=== PATIENT | male | born 1935 | race Caucasian/White ===

== ENCOUNTER 2020-03-16 13:29 | Inpatient (IN) | payer OTHER, BC, SELFPAY ==
[~2020-03-16] VITALS: Ht 182.9 cm; Wt 64.0 kg
[2020-03-16 13:31] VITALS: BP_SYST 132
--- NOTE | 2020-03-16 13:36 | NUR ---
Patient to ER bed 6 to gown for evaluation. Side rails up. Report given to YOLIS Hdz.
--- NOTE | 2020-03-16 13:38 | NUR ---
Pt brought by ambulance, A&Ox1, pt presents to ER with generalized weakness, pt has Hx of dementia, skin pink and warm, cap refill<3, VSS, respirations even and unlabored, afebrile, no SOB or cough noted, no diarrhea, covid test collected, will cont to monitor.
--- NOTE | 2020-03-16 13:45 | NUR ---
Dr Damon evaluating patient at bedside
[2020-03-16] MEDS ORDERED: NACL 0.9% 1,000 ML IV ONE (14:15)
[2020-03-16 14:39] LABS: BASOPHILS # (AUTO) 0.1 K/uL (0.0-0.2); BASOPHILS % (AUTO) 0.5 % (0.0-2.0); EOSINOPHILS % (AUTO) 0.1 % (0.0-4.0); HEMATOCRIT 42.9 % (36-54); HEMOGLOBIN 14.4 g/dL (14.0-18.0); LYMPHOCYTES # (AUTO) 0.5 K/uL (1.0-5.5); LYMPHOCYTES % (AUTO) 3.9 % (20.5-51.5); MEAN CORPUSCULAR HEMOGLOBIN 33 pg (27-31); MEAN CORPUSCULAR HGB CONC 34 % (32-36); MEAN CORPUSCULAR VOLUME 97 fL (79.0-98.0); MONOCYTES # (AUTO) 0.9 K/uL (0.0-1.0); MONOCYTES % (AUTO) 7.6 % (1.7-9.3); NEUTROPHILS # (AUTO) 10.4 K/uL (1.8-7.7); NEUTROPHILS % (AUTO) 87.9 % (40.0-70.0); PLATELET COUNT (AUTO) 160 K/uL (130-430); RED BLOOD CELL COUNT(AUTO) 4.41 MIL/uL (4.2-6.2); RED CELL DISTRIBUTION WIDTH 13.9 % (9.0-15.0); WHITE BLOOD COUNT (AUTO) 11.9 K/uL (4.8-10.8)
--- NOTE | 2020-03-16 15:00 | NUR ---
Pt resting in [facility] at this time no distress noted
[2020-03-16 15:09] LABS: ANION GAP 3 (5-15); CALCIUM 8.8 mg/dL (8.4-11.0); CHLORIDE 103 mmol/L (98-107); CREATININE 1.36 mg/dL (0.55-1.30); GLUCOSE 139 mg/dL (70-99); POTASSIUM 4.1 mmol/L (3.5-5.1); SODIUM SERUM 138 mmol/L (136-145); UREA NITROGEN, BLOOD 20 mg/dL (8-21)
[2020-03-16 15:15] LABS: BILIRUBIN,URINE NEGATIVE (NEGATIVE); BLOOD, URINE NEGATIVE (NEGATIVE); CLARITY/URINE CLEAR (CLEAR); COLOR,URINE YELLOW (YELLOW); GLUCOSE,URINE NEGATIVE (NEGATIVE); KETONES,URINE NEGATIVE (NEGATIVE); LEUKOCYTE ESTERASE ,URINE NEGATIVE (NEGATIVE); NITRITE, URINE NEGATIVE (NEGATIVE); PH,URINE 5.5 (5.0-8.0); PROTEIN URINE NEGATIVE (NEGATIVE); UROBILINOGEN,URINE 0.2 (0.2-1.0)
[2020-03-16 15:24] LABS: ALANINE AMINOTRANSFERASE 26 U/L (12-78); ALBUMIN 3.8 g/dL (3.4-4.8); ASPARTATE AMINOTRANSFERASE 22 U/L (10-37); LACTATE DEHYDROGENASE 188 U/L (85-227); TOTAL BILIRUBIN 0.7 mg/dL (0.0-1.0)
[2020-03-16 15:37] LABS: C-REACTIVE PROTEIN QUANT 5.7 mg/dL (0-0.5)
[2020-03-16 15:59] LABS: PROTHROMBIN TIME 9.9 SECS (9.5-12.5)
--- NOTE | 2020-03-16 17:00 | NUR ---
Pt resting in [facility] at this time
[2020-03-16] MEDS ORDERED: IOHEXOL 350 mgI/mL, 150 ML INFUS..BTL IV ONE (17:40)
--- NOTE | 2020-03-16 18:48 | NUR ---
Pt asleep in [facility] no distress noted
--- NOTE | 2020-03-16 19:20 | NUR ---
REPORT RECEIVED FROM YOLIS CELAYA FOR CONTIUING CARE
--- NOTE | 2020-03-16 19:26 | NUR ---
COVID SWAB COLLECTED AND SENT TO LAB
[2020-03-16] MEDS ORDERED: D5/0.45 NS 1,000 ML IV ONE (19:45)
[2020-03-16] MEDS ORDERED: HALOPERIDOL LACTATE 5 MG/ML VIAL IM PRN (20:45)
--- NOTE | 2020-03-16 20:50 | NUR ---
SW ELEN CHOU TO INFORM OF ADMISSION INTO THE HOSPITAL
[2020-03-16] MEDS ORDERED: RISP0.5T5 PO (20:52)
[2020-03-16] MEDS ORDERED: CLOP75TA32 PO (20:52)
[2020-03-16] MEDS ORDERED: SYN50 PO (20:52)
[2020-03-16] MEDS ORDERED: CARB1TAB21 PO (20:52)
[2020-03-16] MEDS ORDERED: LIP20 PO (20:52)
--- NOTE | 2020-03-16 20:52 | NUR ---
Medication reconciliation completed with information provided by ELEN CHOU . Any prior medication reconciliation on file was reviewed and corrected.
--- NOTE | 2020-03-16 21:56 | NUR ---
Patient resting quietly. No acute distress noted. Vital signs within normal range.
--- NOTE | 2020-03-16 22:23 | NUR ---
Patient will be admitted to care of DR. VARMA. Admitted to TELE unit. Will go to room 121C. Belongings list completed. Complete and up to date summary report printed. SBAR report to be given at bedside with opportunity for questions.
[2020-03-16 22:31] VITALS: BP_SYST 135
--- NOTE | 2020-03-16 22:31 | NUR ---
ADMISSION NOTES ADMITTED PATIENT FROM ER FOR SEPSIS. PATIENT RESPOND TO NAME BUT UNABLE TO PROVIDE ANY INFORMATION AT THIS TIME. BREATHING UNLABORED ON ROOM AIR. PATIENT ORIENTED TO ROOM, CALL LIGHT SYSTEM, BED CONTROLS AND TV REMOTE. PATIENT UNABLE TO COMPREHEND/FOLLOW INSTRUCTIONS. BED IN LOWEST LOCKED POSITION WITH ALARM ON.
[2020-03-16] MEDS: cefTRIAXone 1 GM in D5W 50 ML IV SCH (23:06)
--- NOTE | 2020-03-16 23:06 | NUR ---
ATB PATIENT STARTED ON ROCEPHIN ANTIBIOTIC ORDERED. IV LINE INTACT AND PATENT. VITAL SIGNS STABLE.
[2020-03-16] MEDS ORDERED: cefTRIAXone 1 GM VIAL ONE (23:12)
--- NOTE | 2020-03-16 23:29 | NUR ---
Consultation Paged Reason for Consultation: Elevated D Dimer Was consult called: Y Person who was notified : Melias Consulting Physician: Dr. Jimenez Ordering Physician: Dr. Oakes
[2020-03-17 00:37] VITALS: BP_SYST 117
--- NOTE | 2020-03-17 01:00 | NUR ---
ROUNDS PATIENT RESTING IN BED. NO DISTRESS NOTED. 02 SAT 96% ON ROOM AIR.
--- NOTE | 2020-03-17 03:46 | NUR ---
ROUNDS PATIENT EYES CLOSED AROUSABLE TO NAME/LIGHT STIMULI. IVF INFUSING ORDERED. 02 SAT 97%.
--- NOTE | 2020-03-17 03:57 | NUR ---
Swallow Eval Called Called and left a message to Tammy regarding swallow eval, ordered by Dr. Oakes
--- NOTE | 2020-03-17 05:00 | NUR ---
AM CARE INCONTINENCE CARE DONE. PATIENT HAD MEDIUM LOOSE BOWEL MOVEMENT. LINENS CHANGED.
--- NOTE | 2020-03-17 05:14 | NUR ---
Consultation Paged Reason for Consultation: Elevated D Dimer Was consult called: Y Person who was notified : Dr. Seymour notified through text message Consulting Physician: Dr. Seymour Ordering Physician: Dr. Oakes
[2020-03-17 05:20] VITALS: BP_SYST 107
--- NOTE | 2020-03-17 06:42 | NUR ---
CLOSING NOTES NO CHANGED IN PATIENT CONDITION. PATIENT NEEDS ATTENDED. IVF INFUSING WITH IV LINE INTACT AND PATENT. BED IN LOWEST LOCKED POSITION WITH ALARM ON. CALL LIGHT WITH IN REACH.
--- NOTE | 2020-03-17 07:50 | NUR ---
OPENING NOTE Patient resting in the bed. No acute distress. Breath in room air. Skin warm and dry to touch. IV intact to left hand, no redness, no swelling, no drainage. On D5 1/2NS at 75ml/hr, infusing well. SL intact to YAW, no redness, no swelling, patent. On isolation. Safety measure maintained. Call light within reached. Bed locked in low position, side rails up, bed alarm on. Will continue to monitor.
[2020-03-17 08:04] VITALS: BP_SYST 117
[2020-03-17] MEDS ORDERED: NACL 0.9% 1,000 ML IV ONE (09:30)
--- NOTE | 2020-03-17 09:44 | NUR ---
Nutrition Update Lv Scale 14 noted. Pt admitted for sepsis. Diet: NPO BMI: 19.2 kg/m2 RD to follow per nutrition care standards.
--- NOTE | 2020-03-17 09:47 | NUR ---
[facility]IM[facility] VISITED Seen and examined by Dr. Jimenez with order received, noted and carried out. Dr. Jimenez called patient's , obtained patient history and explained the condition to .
--- NOTE | 2020-03-17 10:55 | NUR ---
ROUND Patient resting in the bed. No acute distress. IV intact, IVF infusing well. Safety measure maintained. Bed locked in low position, side rails up, bed alarm on. Call light within reached. Continue to monitor.
[2020-03-17 12:00] VITALS: BP_SYST 132
[2020-03-17] MEDS: D5/0.45 NS 1,000 ML IV SCH (12:05)
--- NOTE | 2020-03-17 12:39 | NUR ---
TURNED AND REPOSITIONED Patient resting in the bed. No acute distress. Turned and repositioned. IV intact, no redness, no swelling, patent. IVF of D5 1/2NS hang regulated at 75ml/hr, infusing well. Continue on isolation. Safety measure maintained. Call light within reached. Bed locked in low position, side rails up, bed alarm on. Continue to monitor.
--- NOTE | 2020-03-17 12:57 | NUR ---
SEEN AND EXAMINED BY MOIRA OCAMPO
[2020-03-17] MEDS ORDERED: CARBIDOPA/LEVODOPA 25/250 MG TABLET PO ONE (13:30)
--- NOTE | 2020-03-17 15:10 | NUR ---
ROUND Patient resting in the bed. No acute distress. HOB elevated. IV intact, IVF infusing well. On isolation. Safety measure maintained. Call light within reached. Bed locked in low position, side rails up, bed alarm on. Continue to monitor.
[2020-03-17 16:00] VITALS: BP_SYST 107
--- NOTE | 2020-03-17 16:45 | NUR ---
S.T. SWALLOW EVAL SWALLOW EVAL PERFORMED. PT PRESENTS W/ SEV PRE-ORAL, ORAL, AND PHARYNGEAL DYSPHAGIA W/ DECREASED INTEREST FOR P.O., P.O. REFUSAL, POOR BOLUS MANIPULATION, AND ABSENT SWALLOW. PT IS AT HIGH RISK FOR ASPIRATION, MALNUTRITION, AND DEHYDRATION. REC: NPO - ALTERNATIVE METHOD FOR FEEDING. NURSE CLARISSA NOTIFIED.
[2020-03-17] MEDS: CARBIDOPA/LEVODOPA 25/250 MG TABLET PO SCH ×2 (17:00→22:36)
--- NOTE | 2020-03-17 17:19 | NUR ---
CALLED ROB MORGAN FOR NEGATIVE COVID RESULT, LEFT MESSAGE AND WAITED TO CALL BACK.
--- NOTE | 2020-03-17 18:10 | NUR ---
RECEIVED THE CALLED BACK FROM SIDDHARTH VASQUEZ Informed the COVID result negative with order to D/C isolation. Also reported to Dr. Oakes, swallow eval cannot be done due to patient not open the mouth. Per ST recommendation NPO including medication. Dr. Polanco with NGT and tube feeding order.
--- NOTE | 2020-03-17 18:20 | NUR ---
IV OUT Patient refused to turn and IV accident out on left hand, IV tip intact, no bleeding noted. Patient changed room to 132 A. to Safety measure maintained. Call light within reached. Bed locked in low position, side rails up, bed alarm on. Continue to monitor.
--- NOTE | 2020-03-17 18:50 | NUR ---
CLOSING NOTE Patient resting in the bed. No acute distress. Breath in room air. Skin warm and dry to touch. IV intact to YAW, no redness, no swelling, no drainage. On D5 1/2NS at 75ml/hr, infusing well. All needs met. Safety measure maintained. Call light within reached. Bed locked in low position, side rails up, bed alarm on. Will endorse to night nurse.
--- NOTE | 2020-03-17 19:20 | NUR ---
OPENING NOTE/ DR. CHEN AT BEDSIDE PATIENT AOX1. AWAKE, ABLE TO FOLLOW ON SIMPLE COMMANDS. NO SIGNS OF RESPIRATORY DISTRESS AND DISCOMFORT NOTED. BREATHING EVEN AND UNLABORED. ON ROOM AIR, TOLERATING WELL. 02 SATURATION OF 97%. DR. CHEN AT BEDSIDE. MD GAVE AN ORDER TO INSERT NG TUBE, PATIENT ON NPO, PER MD, PATIENT FAILED SWALLOW EVAL. PATIENT IVF INFUSING WELL. CALL LIGHT WITHIN REACH. BED ALARM ON. BED LOCKED AND IN LOWEST POSITION. SAFETY PRECAUTIONS IN PLACE. WILL CONTINUE TO MONITOR PATIENT.
[2020-03-17 20:00] VITALS: BP_SYST 130
--- NOTE | 2020-03-17 21:04 | NUR ---
PAGED DR. CHEN
[2020-03-17] MEDS: cefTRIAXone 1 GM in D5W 50 ML IV SCH (21:20)
--- NOTE | 2020-03-17 21:49 | NUR ---
paged paged doctor joya
--- NOTE | 2020-03-17 22:02 | NUR ---
SPOKE WITH DR. APRIL HOOD MADE AWARE THAT NG TUBE INSERTION WAS NOT SUCCESSFUL DUE TO THAT PATIENT BLEED DURING INSERTION X2 ATTEMPT. MD VERBALIZED NOT TO INSERT NG TUBE. MD MADE AWARE WELL THAT PATIENT IS MORE AWAKE AND COMMUNICATIVE (SLOW RESPONSE BUT TALKING). MD VERBALIZED TO GIVE DUE PO MEDICATION CRUSHED. MD AWARE THAT PATIENT FAILED SWALLOW EVAL. MD OK TO GIVE PO MEDS AND OBSERVE. MD GAVE ORDERS. READ BACK AND CONFIRMED.
--- NOTE | 2020-03-17 22:36 | NUR ---
MED PASS/ PO MEDS TOLERATED DUE PO MEDICATION WAS GIVEN AT THIS TIME. PER MD ''CRUSH MED AND MIXED WITH (PUREED FOOD)''. PATIENT ABLE TO TOLERATE MEDICATION. NO COUGHING NOTED, NO SIGNS OF ASPIRATION NOTED. PATIENT ABLE TO FOLLOW ON COMMANDS TO SWALLOW FOOD CAUTIOUSLY. PATIENT WAS EDUCATED ON MEDICATION THAT WAS GIVEN FOR ITS PURPOSE, SIDE EFFECT AND BENEFITS, PATIENT NOD BUT UNABLE TO VERBALIZED UNDERSTANDING, PATIENT IS FORGETFUL AT TIMES. SAFETY PRECAUTIONS IN PLACE. WILL CONTINUE TO MONITOR PATIENT.
--- NOTE | 2020-03-17 23:41 | NUR ---
RN ROUNDS PATIENT ASLEEP AT THIS TIME. NO SIGNS OF RESPIRATORY DISTRESS AND DISCOMFORT NOTED. BREATHING EVEN AND UNLABORED. ON ROOM AIR TOLERATING WELL. IVF INFUSING WELL. CALL LIGHT WITHIN REACH. SAFETY PRECAUTIONS IN PLACE. WILL CONTINUE TO MONITOR PATIENT
[2020-03-18 00:24] VITALS: BP_SYST 119
[2020-03-18] MEDS: D5/0.45 NS 1,000 ML IV SCH ×2 (00:35→14:18)
--- NOTE | 2020-03-18 05:13 | NUR ---
SPEECH CONSULTATION PAGED/CALLED Reason for Consultation: REPEAT SWALLOW EVAL Person Who was Notified: TERI GARCIA Consulting Physician: Baggage Clerk Specialty: Ordering Physician: APRIL
--- NOTE | 2020-03-18 06:15 | NUR ---
ATTEMPTING TO GET OUT OF BED PATIENT AWAKE, TRYING TO GET OUT OF BED. PATIENT RE ORIENTED PLACE. PATIENT ABLE TO FOLLOW ON COMMANDS WHEN ASKED TO STAY. PRIMARY NURSE AT BED SIDE. BED ALARM ON. OTHER SAFETY PRECAUTIONS IN PLACE. WILL CONTINUE TO MONITOR PATIENT
[2020-03-18 06:33] LABS: BASOPHILS % (AUTO) 0.4 % (0.0-2.0); EOSINOPHILS # (AUTO) 0.3 K/uL (0.0-0.4); EOSINOPHILS % (AUTO) 3.4 % (0.0-4.0); HEMATOCRIT 39.2 % (36-54); HEMOGLOBIN 13.4 g/dL (14.0-18.0); LYMPHOCYTES # (AUTO) 1.1 K/uL (1.0-5.5); LYMPHOCYTES % (AUTO) 13.8 % (20.5-51.5); MEAN CORPUSCULAR HEMOGLOBIN 33 pg (27-31); MEAN CORPUSCULAR HGB CONC 34 % (32-36); MEAN CORPUSCULAR VOLUME 97 fL (79.0-98.0); MONOCYTES # (AUTO) 0.8 K/uL (0.0-1.0); MONOCYTES % (AUTO) 10.5 % (1.7-9.3); NEUTROPHILS # (AUTO) 5.6 K/uL (1.8-7.7); NEUTROPHILS % (AUTO) 71.9 % (40.0-70.0); PLATELET COUNT (AUTO) 163 K/uL (130-430); RED BLOOD CELL COUNT(AUTO) 4.05 MIL/uL (4.2-6.2); RED CELL DISTRIBUTION WIDTH 13.6 % (9.0-15.0)
--- NOTE | 2020-03-18 06:34 | NUR ---
CLOSING NOTE PATIENT ASLEEP AT THIS TIME. NO SIGNS OF RESPIRATORY DISTRESS AND DISCOMFORT NOTED. BREATHING EVEN AND UNLABORED. ON ROOM AIR, TOLERATING WELL. IVF INFUSING WELL. CALL LIGHT WITHIN REACH. SAFETY PRECAUTIONS IN PLACE. ALL NEEDS MET THROUGHOUT THE SHIFT. WILL CONTINUE TO MONITOR PATIENT UNTIL ENDORSE TO ONCOMING SHIFT NURSE FOR CONTINUITY OF CARE.
[2020-03-18 06:39] LABS: WHITE BLOOD COUNT (AUTO) 7.8 K/uL (4.8-10.8)
[2020-03-18 07:03] LABS: ANION GAP 7 (5-15); CALCIUM 8.1 mg/dL (8.4-11.0); CHLORIDE 105 mmol/L (98-107); CREATININE 0.97 mg/dL (0.55-1.30); GLUCOSE 110 mg/dL (70-99); POTASSIUM 3.5 mmol/L (3.5-5.1); SODIUM SERUM 139 mmol/L (136-145); UREA NITROGEN, BLOOD 11 mg/dL (8-21)
[2020-03-18 07:58] VITALS: BP_SYST 133
--- NOTE | 2020-03-18 08:00 | NUR ---
Note Pt next to nurses' station for close observation. No SOB/resp distress or pain/discomfort noted at this time. Tele unit attached and intact at this time. IV in YAW intact and patent at this time. Pt sitting up in bed and attempting to feed pt his PO medication crushed. Pt not eating his breakfast - slow swallowing. Call light within reach. No needs noted at this time.
--- NOTE | 2020-03-18 08:30 | NUR ---
Note Dr Jimenez (Onc/Hematology) on the floor at pt's bedside to assess pt at this time. Order written and carried out.
[2020-03-18] MEDS: CARBIDOPA/LEVODOPA 25/250 MG TABLET PO SCH ×4 (08:42→21:06)
--- NOTE | 2020-03-18 11:25 | NUR ---
Note Pt resting in bed - no needs noted at this time. Pt calm and no attempts made to get OOB at this time. Pt under close observation for needs and care. Call light within reach.
[2020-03-18 12:00] VITALS: BP_SYST 163
--- NOTE | 2020-03-18 12:55 | NUR ---
Note Tammy (speech therapist) called for update on pt's status, she will be in later on this afternoon. Pt's Aura called for update on pt's status at this time as well. Pt resting in bed. Call light within reach.
--- NOTE | 2020-03-18 15:30 | NUR ---
Note Pt resting in bed, restlessly moving around in bed. IVF's infusing well through YAW. No needs noted at this time. Call light within reach.
[2020-03-18 16:00] VITALS: BP_SYST 129
--- NOTE | 2020-03-18 16:00 | NUR ---
Note Tammy (speech therapist) on the floor at pt's bedside to do swallow eval.
--- NOTE | 2020-03-18 16:20 | NUR ---
S.T. SWALLOW EVAL SWALLOW EVAL COMPLETED. PT SHOWED SOME IMPROVEMENT FROM YESTERDAY. PT PRESENTS W/ MOD OROPHARYNGEAL DYSPHAGIA W/ DELAYED BOLUS TRANSFER AND SUSPECTED DELAYED SWALLOW. NO S/S OF ASPIRATION. PT STILL W/ POOR INTEREST FOR P.O. AND IS AT HIGH RISK FOR MALNUTRITION AND DEHYDRATION. REC: CONTINUE PUREE DIET ORDERED. MONITOR FOR ADEQUATE INTAKE. NURSE MELISSA NOTIFIED.
--- NOTE | 2020-03-18 16:37 | NUR ---
Dietitian Recommendations * Recommend diet as per ST odom re-eval results LP, RD Please refer to Nutrition Assessment for details. Addendum: 03/18/20 at [address] Amended: Links added.
--- NOTE | 2020-03-18 18:20 | NUR ---
Note Pt sitting up in bed with HOB at 75'. No SOB/resp distress or pain/discomfort noted at this time. Tele unit attached and intact all shift. IV in YAW intact and patent infusing IVF's well. Pt was checked on q1' and PRN all shift for needs and care. Pt was maintained with safety precautions all shift. Pt has been next to nurses's station for close observation. No needs noted at this time. Call light within reach.
--- NOTE | 2020-03-18 19:15 | NUR ---
OPENING NOTE/DR MATT AT BEDSIDE BEDSIDE REPORT RECEIVED FROM [facility] NURSE. PATIENT RECEIVED LYING IN BED, AWAKE, NO S/S OF ACUTE DISTRESS NOTED. BREATHING EVEN AND UNLABORED. HOB RAISED. IVF INFUSING WELL, IV SITE IS PATENT, NO SIGNS OF INFILTRATION OR INFECTION NOTED. CALL LIGHT WITH PATIENT. BED ALARM ON. SCDS ATTACHED AND OPERATING. BED IS LOCKED AND AT LOWEST POSITION. WILL CONTINUE TO MONITOR.
[2020-03-18 20:00] VITALS: BP_SYST 134
--- NOTE | 2020-03-18 21:00 | NUR ---
MEDPASS/PERICARE SCHEDULED MEDICATIONS ADMINISTERED AT THIS TIME, PATIENT TOLERATED WELL. PATIENT CLEANED AT THIS TIME, PATIENT VOIDED. PATIENT TOLERATED WELL. ALL NEEDS MET. BED ALARM ON. WILL CONTINUE TO MONITOR.
[2020-03-18] MEDS: cefTRIAXone 1 GM in D5W 50 ML IV SCH (21:06)
[2020-03-18] MEDS: CLOPIDOGREL BISULFATE 75 MG TABLET PO SCH (23:00)
[2020-03-18] MEDS: LEVOTHYROXINE SODIUM 0.05 MG TABLET PO SCH (23:00)
--- NOTE | 2020-03-18 23:00 | NUR ---
ROUNDS PATIENT ASLEEP. NO SIGNS OF DISCOMFORT NOTED. CHEST RISE AND FALL EVEN BILATERALLY. HOB RAISED. BED ALARM ON. WILL CONTINUE TO MONITOR.
[2020-03-19 00:30] VITALS: BP_SYST 121
--- NOTE | 2020-03-19 01:00 | NUR ---
PERICARE PATIENT CLEANED AT THIS TIME. PATIENT TOLERATED WELL. ALL NEEDS MET. BED ALARM ON. WILL CONTINUE TO MONITOR.
--- NOTE | 2020-03-19 03:00 | NUR ---
ROUNDS PATIENT IN BED, SLEEPING COMFORTABLY. ALL NEEDS MET. NO CHANGE FROM PREVIOUS CONDITION. WILL CONTINUE TO MONITOR.
--- NOTE | 2020-03-19 05:00 | NUR ---
PERICARE PATIENT CLEANED BY BRILLIANDEER LOPPER AND RN. PATIENT TOLERATED WELL. ALL NEEDS MET. BED ALARM ON. WILL CONTINUE TO MONITOR.
[2020-03-19] MEDS: D5/0.45 NS 1,000 ML IV SCH ×2 (05:32→17:43)
[2020-03-19] MEDS: LEVOTHYROXINE SODIUM 0.05 MG TABLET PO SCH (06:26)
--- NOTE | 2020-03-19 06:45 | NUR ---
CLOSING NOTE PATIENT IN BED RESTING AT THIS TIME. NO S/S OF ACUTE DISTRESS NOTED. BREATHING IS EVEN AND UNLABORED. HOB RAISED. IVF INFUSING WELL. IV SITE IS PATENT, NO SIGNS OF INFILTRATION OR INFECTION NOTED. ALL NEEDS MET THROUGHOUT SHIFT. FALL AND SAFETY PRECAUTIONS MAINTAINED THROUGHOUT SHIFT. WILL CONTINUE TO MONITOR UNTIL PATIENT CARE IS ENDORSED TO ONCOMING DAYSHIFT NURSE.
--- NOTE | 2020-03-19 07:31 | NUR ---
Opening Note received bedside SBAR report from retail shift supervisor RN, patient resting in bed, respirations even and unlabored on room air, no acute distress noted, room close to nurses station, educated patient on use of call light and asked to call for assistance, call light in reach, bed in low and locked position, bed alarm on.
[2020-03-19] MEDS: CLOPIDOGREL BISULFATE 75 MG TABLET PO SCH (08:10)
[2020-03-19] MEDS: CARBIDOPA/LEVODOPA 25/250 MG TABLET PO SCH ×4 (08:10→22:39)
[2020-03-19 08:24] VITALS: BP_SYST 152
--- NOTE | 2020-03-19 09:35 | NUR ---
Agitation patient appears agitated, patient removing gown and attempting to remove panel monitor, able to calm patient, assisted patient to put gown back on, tele monitor in place, patient resting in bed calmly, no acute distress noted.
--- NOTE | 2020-03-19 11:03 | NUR ---
Bed bath patient provided with bed bath with assistance from PARTS PROFESSIONAL, linen and gown changed, patient tolerated well, low air loss mattress in place, patient resting in bed, respirations even and unlabored, no acute distress noted.
[2020-03-19 12:16] VITALS: BP_SYST 139
--- NOTE | 2020-03-19 13:20 | NUR ---
RN Rounds patient resting in bed, calm, respirations even and unlabored on room air, no acute distress noted, no pain noted using FLACC scale.
--- NOTE | 2020-03-19 15:02 | NUR ---
Physician Rounds Dr. Seymour at bedside examining patient.
[2020-03-19 16:20] VITALS: BP_SYST 112
--- NOTE | 2020-03-19 16:39 | NUR ---
Incontinent patient incontinent of bowel and bladder, patient cleaned and assisted to reposition, patient tolerated well, no acute distress noted.
--- NOTE | 2020-03-19 18:16 | NUR ---
Dinner assisted patient to eat dinner, patient tolerated well, consume 50% of dinner tray, no acute distress noted, patient resting in bed.
--- NOTE | 2020-03-19 19:03 | NUR ---
Closing Note bedside SBAR report given to receiving RN, patient resting in bed, respirations even and unlabored on room air, no pain noted using FLACC scale, no acute distress noted, room close to nurses station, educated patient on use of call light and asked to call for assistance, call light in reach, bed in low and locked position, bed alarm on.
--- NOTE | 2020-03-19 19:20 | NUR ---
OPENING NOTE RECEIVED BEDSIDE REPORT FROM AM NURSE. PATIENT RESTING IN BED NO SIGNS OF DISTRESS NOTED. TOLERATING IVF, IV SITE PATENT AND INTACT WITH NO SIGNS OF INFILTRATION NOTED. BED LOCKED IN LOW POSITION, CALL LIGHT IN REACH. WILL CONTINUE TO MONITOR. ROOM CLOSE TO NURSING STATION.
[2020-03-19 20:00] VITALS: BP_SYST 139
--- NOTE | 2020-03-19 22:00 | NUR ---
MEDICATION PATIENT TOLERATED ORAL MEDS CRUSHED AND MIXED IN PUDDING. PATIENT AWAKE, RESTING IN BED. NO SIGS OF AGITATION OR PAIN NOTED AT THIS TIME.
[2020-03-19] MEDS: cefTRIAXone 1 GM in D5W 50 ML IV SCH (22:39)
--- NOTE | 2020-03-20 | NUR ---
RN ROUNDS INCONTINENCE CARE PROVIDED, PATIENT TOLERATED. PATIENT AGITATED DURING CLEANING. REPOSITIONED. WILL CONTINUE TO MONITOR.
[2020-03-20 01:50] VITALS: BP_SYST 142
--- NOTE | 2020-03-20 06:00 | NUR ---
CLOSING NOTE PATIENT RESTING, NO SIGNS OF DISTRESS NOTED. RESPIRATIONS EVEN AND UNLABORED ON ROOM AIR. INCONTINENCE CARE PROVIDED. PATIENT TOLERATED PO MEDIATION, CRUSHED IN PUDDING. PATIENT STABLE THROUGHOUT SHIFT. ALL CARE NEEDS MET. SAFETY, FALL, AND ASPIRATION PRECAUTIONS MAINTAINED. BED LOCKED IN LOW POSITION, CALL LIGHT IN REACH. BED ALARM ON. WILL CONTINUE TO MONITOR UNTIL ENDORSED TO AM NURSE.
[2020-03-20] MEDS: LEVOTHYROXINE SODIUM 0.05 MG TABLET PO SCH (06:44)
[2020-03-20] MEDS: D5/0.45 NS 1,000 ML IV SCH ×2 (06:44→19:45)
--- NOTE | 2020-03-20 07:50 | NUR ---
Opening Notes Patient is awake, alert and oriented x1. Pt is incontinent, cleaned, left dry and repositioned in bed. No resp distress noted. Breathing is even and unlabored. Pt shows no signs of pain at this time. No signs of agitation at this time. IV site on right upper arm, 20 gauge intact at this time, flushing well, saline lock. SCDs in place. All needs met. Safety and fall precautions in place. Bed in lowest position, alarm on, locked. Will continue to monitor.
[2020-03-20 08:00] VITALS: BP_SYST 126
[2020-03-20] MEDS: CLOPIDOGREL BISULFATE 75 MG TABLET PO SCH (08:40)
[2020-03-20] MEDS: CARBIDOPA/LEVODOPA 25/250 MG TABLET PO SCH ×4 (08:40→20:12)
--- NOTE | 2020-03-20 10:17 | NUR ---
Notes Patient is sleeping in bed at this time. No resp distress noted. Breathing is even and unlabored. NO signs of pain at this time. Will continue to monitor.
--- NOTE | 2020-03-20 12:00 | NUR ---
Notes Patient is laying in bed, resting at this time. No resp distress noted, no agitation. Pt shows no signs of pain at this time. Pt is incontinent, noted with BM. Cleaned, left dry, and repositioned in bed. All needs met. Will continue to monitor.
[2020-03-20 12:16] VITALS: BP_SYST 102
--- NOTE | 2020-03-20 14:00 | NUR ---
Notes Patient is sleeping in bed at this time. No resp distress noted. Breathing is even and unlabored. No signs of pain at this time. Will continue to monitor.
--- NOTE | 2020-03-20 16:00 | NUR ---
Notes/Agitation Patient is laying in bed, resting. Pt is incontinent. Patient becomes agitated during cleaning. Patient was reoriented. Repositioned in bed. Left clean and dry. No resp distress. No signs of pain. Will continue to monitor.
[2020-03-20 16:12] VITALS: BP_SYST 129
--- NOTE | 2020-03-20 17:45 | NUR ---
Patient is being seen and examined by DR. MATT
--- NOTE | 2020-03-20 18:13 | NUR ---
Closing Notes Patient is laying in bed, alert and oriented x1. No resp distress noted. Breathing is even and unlabored. No agitation at this time. IV site on right upper arm, intact at this time, flushing well. D5 1/2 NS @ 75 cc/hr, infusing well. Patient was repositioned in bed. Nurse is assisting patient with dinner. All needs met. Safety and fall precautions in place. Bed in lowest position, alarm on, locked. Will continue to monitor.
--- NOTE | 2020-03-20 19:28 | NUR ---
OPENING NOTE PATIENT AOX1. AWAKE, ABLE TO FOLLOW ON SIMPLE COMMANDS. NO SIGNS OF RESPIRATORY DISTRESS AND DISCOMFORT NOTED. BREATHING EVEN AND UNLABORED. ON ROOM AIR, TOLERATING WELL. 02 SATURATION OF 97%. PATIENT IVF INFUSING WELL. CALL LIGHT WITHIN REACH. BED ALARM ON. BED LOCKED AND IN LOWEST POSITION. SAFETY PRECAUTIONS IN PLACE. WILL CONTINUE TO MONITOR PATIENT.
[2020-03-20] MEDS: cefTRIAXone 1 GM in D5W 50 ML IV SCH (20:12)
--- NOTE | 2020-03-20 20:12 | NUR ---
MED PASS DUE PO MEDICATION WAS GIVEN AT THIS TIME, PATIENT TOLERATED WELL. PATIENT WAS EDUCATED ON MEDICATION THAT WAS GIVEN FOR ITS PURPOSE, SIDE EFFECT AND BENEFITS, PATIENT NOD BUT UNABLE TO VERBALIZED UNDERSTANDING, PATIENT IS CONFUSED. IVF INFUSING WELL. SAFETY PRECAUTIONS IN PLACE. WILL CONTINUE TO MONITOR PATIENT.
[2020-03-20 20:18] VITALS: BP_SYST 127
[2020-03-21 01:03] VITALS: BP_SYST 120
[2020-03-21] MEDS: D5/0.45 NS 1,000 ML IV SCH ×2 (06:51→21:26)
[2020-03-21] MEDS: LEVOTHYROXINE SODIUM 0.05 MG TABLET PO SCH (06:51)
--- NOTE | 2020-03-21 07:25 | NUR ---
OPENING NOTE RECEIVED SBAR FROM NIGHT RN, PATIENT IN BED, RESPIRATIONS EVEN, NON LABORED, BED IN LOW AND LOCKED POSITION, CALL LIGHT WITHIN REACH, BED ALARM ON
--- NOTE | 2020-03-21 07:32 | NUR ---
CLOSING NOTE PATIENT ASLEEP AT THIS TIME. NO SIGNS OF RESPIRATORY DISTRESS AND DISCOMFORT NOTED. BREATHING EVEN AND UNLABORED. ON ROOM AIR, TOLERATING WELL. IVF INFUSING WELL. CALL LIGHT WITHIN REACH. SAFETY PRECAUTIONS IN PLACE. ALL NEEDS MET THROUGHOUT THE SHIFT. WILL CONTINUE TO MONITOR PATIENT UNTIL ENDORSE TO YOLIS ONEIL FOR CONTINUITY OF CARE
[2020-03-21 08:00] VITALS: BP_SYST 131
--- NOTE | 2020-03-21 08:00 | NUR ---
NURSE NOTE OBTAINED VS, PATIENT IN BED, RESPIRATIONS EVEN, NON LABORED, BED IN LOW AND LOCKED POSITION, CALL LIGHT WITHIN REACH, BED ALARM ON
[2020-03-21] MEDS: CLOPIDOGREL BISULFATE 75 MG TABLET PO SCH (09:40)
[2020-03-21] MEDS: CARBIDOPA/LEVODOPA 25/250 MG TABLET PO SCH ×4 (09:40→21:20)
--- NOTE | 2020-03-21 09:40 | NUR ---
NURSE NOTES ADMINISTERED MEDICATIONS, PATIENT IN BED, RESPIRATIONS EVEN, NON LABORED, BED IN LOW AND LOCKED POSITION, CALL LIGHT WITHIN REACH, BED ALARM ON
--- NOTE | 2020-03-21 11:40 | NUR ---
NURSE NOTE PATIENT IN BED, RESPIRATIONS EVEN NON LABORED, BED IN LOW AND LOCKED POSITION, CALL LIGHT WITHIN REACH, BED ALARM ON, REPOSITIONED PATIENT, NO SIGNS OF DISTRESS NOTED
[2020-03-21 12:00] VITALS: BP_SYST 120
--- NOTE | 2020-03-21 12:57 | NUR ---
Nutrition F/U Admitting Diagnosis: Sepsis Medical History Comment: PMH: Parkinson's Dz, hypothyroidism, HLD, dementia, dysphagia per physician notes SARS-CoV-2 (PCR) Negative 03/16 SARS-CoV-2 Ag (Rapid) Negative 03/16 Subjective Information: RD s/w pt's primary RN at nursing unit who reported that pt did not eat anything for breakfast. Per EMR review, pt is still confused, was seen by ST on 03/18 for re-eval and rec to continue pureed diet. PO intake records indicate Fair PO intake (52% average of 6 meals in 2 days). plans to do TPN but has not been ordered. RD rec to continue to monitor PO intake for the next 3 days and consider supplemental nutrition support if PO declines more. Supplement Ensure High Protein is not available and [facility] is providing Ensure Enlive. Current Diet Order/Nutrition Support:Pureed diet, Ensure High Protein TID Pertinent Medications: Haldol, D5% IV Pertinent Labs: 03/18 Na 139WNL, K 3.5WNL, BG 110 H, BUN 11 WNL, CRE 0.97WNL Skin Integrity Comment: Lv scale: 14; no PIs noted via EMR Current % PO N/A Estimated Energy Expenditure (kcals/day) 3908-0382 kcal/day (30-35 kcal/kg IBW for sepsis) Estimated Protein Required (g/day) 122-162 gm/day (1.5-2 gm/kg IBW for sepsis) Estimated Fluid Required (l/day) 2.4-2.8 L/day (1 ml/kcal/day for maintenance) Problem/Etiology/Signs/Symptoms Increased nutritional needs related to metabolic demands as evidenced by estimated nutritional requirements for sepsis. (*ongoing) Suboptimal nutritional intakes related to possible swallowing difficulties as evidenced by need for ST swallow eval and ST recommendation for NPO and alternative method for feeding. (*improving) Expected Outcomes/Goals Monitor appetite and PO intake w/ goal of pt meeting more than 75% of estimated nutritional needs, labs trending WNL, normal GI function, skin integrity/wt maintenance. Dietitian Recommendations * Continue pureed diet as ordered. * Provide Ensure Enlive TID, High Protein is not available. * Consider adding appetite stimulant. Follow Up High Risk: F/U in 2-3days
--- NOTE | 2020-03-21 13:06 | NUR ---
Dietitian Recommendations * Continue pureed diet as ordered. * Provide Ensure Enlive TID, High Protein is not available. * Consider adding appetite stimulant. Please see Nutrition F/U note for details. BOB, BRETT
--- NOTE | 2020-03-21 13:33 | NUR ---
NURSE NOTE PATIENT IS REFUSING TO EAT OR TAKE MEDICATION, REFUSES TO OPEN MOUTH, SPITS IF ATTEMPTED TO PLACE ON LIPS,
--- NOTE | 2020-03-21 15:00 | NUR ---
nurse note patient in bed, eyes closed, bed in low and locked position, call light within reach, bed alarm on, no signs of pain or discomfort,
--- NOTE | 2020-03-21 15:09 | NUR ---
Referral sent to [facility] re[facility]-family is requesting acute rehab for patient
--- NOTE | 2020-03-21 15:24 | NUR ---
Discharge Planning: DCP faxed pt referral to [facility] Rehab (f [phone] p [phone]) DCP to follow up
--- NOTE | 2020-03-21 15:30 | NUR ---
nurse note administered medication, patient ate 2 teaspoons of ice cream with crushed medication, would not eat or drink any thing else. bed in low and locked position, call light within reach, bed alarm on Addendum: 03/21/20 at 1827 by Dru Sanchez RN time should state [id number]
[2020-03-21 15:52] VITALS: BP_SYST 150
--- NOTE | 2020-03-21 18:29 | NUR ---
nurse note patient in bed, eyes open, respirations even, non labored, bed in low and locked position, call light within reach, bed alarm on
--- NOTE | 2020-03-21 19:15 | NUR ---
CLOSING NOTE PROVIDED BEDSIDE SBAR TO NIGHT RN, PATIENT IN BED, RESPIRATIONS EVEN, NON LABORED, BED IN LOW AND LOCKED POSITION , CALL LIGHT WITHIN REACH, BED ALARM ON, ENDORSED CARE TO NIGHT RN
--- NOTE | 2020-03-21 19:20 | NUR ---
OPENING NOTE: PATIENT IS AWAKE, ALERT AND ORIENTED X 1. BREATHING IS UNLABORED AND EVEN ON RA. IVF RUNNING 75 CC/HR. NO SIGN OF INFILTRATION AT IV SITE. VITAL SIGNS ARE WITHIN NORMAL LIMITS. NO S/S ACUTE DISTRESS NOTED. BED ALARM IS ON, AND LOCKED IN LOWEST POSITION. CALL LIGHT IS WITH PATIENT. WILL CONTINUE TO MONITOR.
[2020-03-21 20:00] VITALS: BP_SYST 142
--- NOTE | 2020-03-21 21:20 | NUR ---
MED PASS: PATIENT GIVEN SCHEDULED MED,MED CRUSHED AND MIXED IN PUDDING.TOLERATED IT WELL.NO SIGS OF AGITATION OR PAIN NOTED AT THIS TIME. NEW IV BAG HUNG. ROCEPHIN IS NOT IN PATIENT CUBBY. ORDER PRINT OUT AND GIVEN TO RESIDENTIAL GLAZIER.
[2020-03-21] MEDS: cefTRIAXone 1 GM in D5W 50 ML IV SCH (22:12)
[2020-03-21] MEDS ORDERED: cefTRIAXone 1 GM VIAL ONE (22:14)
--- NOTE | 2020-03-21 22:15 | NUR ---
RECEIVED ROCEPHIN, MIXED IT WITH D5 FLUID AND IVPB STARTED. NO SIGN OF INFILTRATION NOTED AT THE IV SITE. NO S/S ACUTE DISTRESS NOTED. SAFETY AND FALL PRECAUTIONS ARE IN PLACE. WILL CONTINUE TO MONITOR.
[2020-03-22 00:07] VITALS: BP_SYST 116
--- NOTE | 2020-03-22 00:15 | NUR ---
RN ROUNDS: PATIENT ASLEEP AT THIS TIME. NO SIGNS OF RESPIRATORY DISTRESS NOTED. BREATHING EVEN AND UNLABORED ON ROOM AIR . IVF INFUSING WELL. CALL LIGHT WITHIN REACH. SAFETY AND FALL PRECAUTIONS IN PLACE. WILL CONTINUE TO MONITOR PATIENT.
--- NOTE | 2020-03-22 02:50 | NUR ---
RN ROUNDS: PATIENT ASLEEP. NO SIGNS OF RESPIRATORY DISTRESS NOTED. BREATHING EVEN AND UNLABORED ON ROOM AIR. IVF INFUSING WELL. CALL LIGHT WITHIN REACH. SAFETY AND FALL PRECAUTIONS IN PLACE. WILL CONTINUE TO MONITOR PATIENT.
--- NOTE | 2020-03-22 04:13 | NUR ---
RN ROUNDS: PATIENT ASLEEP. BREATHING EVEN AND UNLABORED ON ROOM AIR. IVF INFUSING WELL. CALL LIGHT WITHIN REACH. SAFETY AND FALL PRECAUTIONS IN PLACE. WILL CONTINUE TO MONITOR PATIENT.
[2020-03-22] MEDS: LEVOTHYROXINE SODIUM 0.05 MG TABLET PO SCH (06:20)
--- NOTE | 2020-03-22 06:46 | NUR ---
CLOSING NOTE; MORNING MED GIVEN TO PATIENT, TOLERATED WELL. NO S/S ACUTE DISTRESS NOTED. IVF INFUSING AT 75 CC/HR. NO SIGN OF INFILTRATION AT IV SITE. PATIENT'S GOWN AND LINEN CHANGED. SCD'S ARE IN PLACE. BED IS IN LOWEST LEVEL, ALARM IS ON, AND LOCKED. CALL LIGHT IS WITH PATIENT. WILL CONTINUE TO MONITOR. PATIENT CARE WILL BE ENDORSED TO DAY SHIFT RN.
[2020-03-22 08:00] VITALS: BP_SYST 130
--- NOTE | 2020-03-22 08:00 | NUR ---
awake,confused,vss,O2 sat 98% on room air,refused breakfast,IVF continue infusing total care provided,continue to monitor pt.
[2020-03-22] MEDS: CLOPIDOGREL BISULFATE 75 MG TABLET PO SCH (09:52)
[2020-03-22] MEDS: CARBIDOPA/LEVODOPA 25/250 MG TABLET PO SCH ×4 (09:52→21:37)
--- NOTE | 2020-03-22 10:00 | NUR ---
give am po meds crushed and mixed with apple sauce,maintain on aspiration precaution.
[2020-03-22 12:00] VITALS: BP_SYST 114
--- NOTE | 2020-03-22 12:00 | NUR ---
incontinent of urine and smear brown BM,sandra care provided,hourly rounds made,safety maintained.
[2020-03-22] MEDS: D5/0.45 NS 1,000 ML IV SCH (12:24)
--- NOTE | 2020-03-22 14:00 | NUR ---
pt has increase appetite,ate ice cream and 1/2 ensure,continue IVF infusion.
--- NOTE | 2020-03-22 15:05 | NUR ---
PT evaluation faxed to [facility] Rehab as requested for evaluation of patient
[2020-03-22 16:00] VITALS: BP_SYST 132
--- NOTE | 2020-03-22 16:00 | NUR ---
afebrile,pt remain confused and resisitant to care,continue total care and safety monitoring.
--- NOTE | 2020-03-22 16:07 | NUR ---
Patient was seen for OT evaluation. Pt. is not appropriate for OT tx at this time. Pt is unable to participate with functional task due to severe confusion. Pt to continue Physical therapy for strengthening and to improve with functional mobility. OT evaluation only no OT tx recommended at this time. Pls see OT evaluation form in the chart for more details. Nurse notified.
--- NOTE | 2020-03-22 18:00 | NUR ---
pt mumbling and pulled out blanket,refused dinner,redirected and reoriented as needed. hourly rounds made,safety maintained.
[2020-03-22 20:07] VITALS: BP_SYST 127
[2020-03-22] MEDS: cefTRIAXone 1 GM in D5W 50 ML IV SCH (20:55)
--- NOTE | 2020-03-22 21:40 | NUR ---
MEDICATION PASS: PATIENT GIVEN SCHEDULED MEDICATION. MED CRUSHED AND MIXED WITH APPLE SAUCE. PATIENT TOLERATED WELL. NO S/S ACUTE DISTRESS NOTED. SAFETY AND FALL PRECAUTIONS ARE IN PLACE. WILL CONTINUE TO MONITOR.
[2020-03-23 00:41] VITALS: BP_SYST 155
[2020-03-23] MEDS: D5/0.45 NS 1,000 ML IV SCH ×2 (00:50→04:37)
--- NOTE | 2020-03-23 01:30 | NUR ---
RN ROUNDS: PATIENT IS AWAKE. LAYING IN BED COMFORTABLY. NO S/S ACUTE DISTRESS NOTED. IVF INFUSING AT 75 CC/HR. NO SIGN OF INFILTRATION. SAFETY AND FALL PRECAUTIONS ARE IN PLACE. WILL MONITOR PATIENT FOR ANY CHANGES.
--- NOTE | 2020-03-23 03:00 | NUR ---
RN ROUNDS: PATIENT ASLEEP. BREATHING UNLABORED AND EVEN. IVF INFUSING ORDERED. NO SIGN OF INFILTRATION. SAFETY AND FALL PRECAUTIONS MAINTAINED. WILL CONTINUE TO MONITOR.
[2020-03-23] MEDS: LEVOTHYROXINE SODIUM 0.05 MG TABLET PO SCH (06:13)
--- NOTE | 2020-03-23 06:18 | NUR ---
CLOSING NOTE: PATIENT GIVEN SCHEDULED MORNING MED. TOLERATED WELL. NO S/S ACUTE DISTRESS NOTED. IVF INFUSING AT ORDERED RATE. NO SIGN OF INFILTRATION. RESPIRATION UNLABORED AND EVEN. PATIENT GETS AGITATED WHEN SCD'S BEING PLACE. SCD'S ARE BEING REMOVED. BED LOCKED IN LOWEST POSITION, BED ALARM IS ON, AND CALL LIGHT IS WITH PATIENT. CALL LIGHT IS WITH PATIENT. WILL CONTINUE TO MONITOR. PATIENT CARE WILL BE ENDORSED TO DAY SHIFT RN.
[2020-03-23 08:00] VITALS: BP_SYST 126
--- NOTE | 2020-03-23 08:00 | NUR ---
confused,sleeping quietly in bed,O2 sat 90% on room air,applied O2 2L/NC,sat up to 94%,keep HOB 45 degrees fall precaution & aspiration precaution maintained,IVF continue infusing,total care provided.continue to monitor pt.
[2020-03-23 09:54] LABS: BASOPHILS % (AUTO) 0.4 % (0.0-2.0); EOSINOPHILS # (AUTO) 0.2 K/uL (0.0-0.4); EOSINOPHILS % (AUTO) 2.7 % (0.0-4.0); HEMATOCRIT 43.4 % (36-54); HEMOGLOBIN 14.8 g/dL (14.0-18.0); LYMPHOCYTES # (AUTO) 0.6 K/uL (1.0-5.5); LYMPHOCYTES % (AUTO) 8.6 % (20.5-51.5); MEAN CORPUSCULAR HEMOGLOBIN 33 pg (27-31); MEAN CORPUSCULAR HGB CONC 34 % (32-36); MEAN CORPUSCULAR VOLUME 96 fL (79.0-98.0); MONOCYTES # (AUTO) 0.9 K/uL (0.0-1.0); MONOCYTES % (AUTO) 11.7 % (1.7-9.3); NEUTROPHILS # (AUTO) 5.8 K/uL (1.8-7.7); NEUTROPHILS % (AUTO) 76.6 % (40.0-70.0); PLATELET COUNT (AUTO) 234 K/uL (130-430); RED BLOOD CELL COUNT(AUTO) 4.52 MIL/uL (4.2-6.2); RED CELL DISTRIBUTION WIDTH 13.7 % (9.0-15.0); WHITE BLOOD COUNT (AUTO) 7.5 K/uL (4.8-10.8)
--- NOTE | 2020-03-23 10:00 | NUR ---
give am po meds due,pt taken med crushed and mixed with apple sauce.
[2020-03-23 10:08] LABS: ANION GAP 4 (5-15); CALCIUM 8.6 mg/dL (8.4-11.0); CHLORIDE 102 mmol/L (98-107); CREATININE 1.07 mg/dL (0.55-1.30); GLUCOSE 148 mg/dL (70-99); POTASSIUM 3.7 mmol/L (3.5-5.1); SODIUM SERUM 137 mmol/L (136-145); UREA NITROGEN, BLOOD 12 mg/dL (8-21)
[2020-03-23] MEDS: CARBIDOPA/LEVODOPA 25/250 MG TABLET PO SCH ×3 (10:13→17:33)
[2020-03-23] MEDS: CLOPIDOGREL BISULFATE 75 MG TABLET PO SCH (10:13)
[2020-03-23 12:00] VITALS: BP_SYST 111
--- NOTE | 2020-03-23 12:00 | NUR ---
vss,pt continue sleeping in bed,IVF continue infusing,hourly rounds made,safety maintained.
--- NOTE | 2020-03-23 14:00 | NUR ---
pt sleeping quietly in bed,no significant changes noted in pt status.
--- NOTE | 2020-03-23 14:10 | NUR ---
Discharge Planning: DCP faxed pt referral to [facility], [facility], [facility] and [facility] to follow up Addendum: 03/23/20 at 1550 by Norma Collier DP DCP followed up with [facility]- will consider, [facility]-will accept Rm 6, [facility]- accept per [facility] and [facility]-will accept will need a up dated Covid19, and mental status. Addendum: 03/23/20 at 1629 by Norma Collier DP transportation with [facility] ([phone]) BLS 7:30pm [phone] to [facility] [phone] Rm 108M
--- NOTE | 2020-03-23 16:00 | NUR ---
afebrile,vss,pt continue sleeping in bed,continue to monitor pt.
--- NOTE | 2020-03-23 16:18 | NUR ---
Spoke w/ [id number] agreed to transfer to [facility].
[2020-03-23 16:21] VITALS: BP_SYST 124
--- NOTE | 2020-03-23 18:00 | NUR ---
order received to transfer pt to [facility],report called and given to nurse recio in [facility] by phone.
--- NOTE | 2020-03-23 19:44 | NUR ---
[facility] FOLLOW UP ON TRANSPORT SPOKE WITH RIGO . HE SAID IT WAS DOUBLE BOOKED AND HE WILL HAVE SOMEONE HERE IN ABOUT 20 MIN
[2020-03-23 20:00] VITALS: BP_SYST 141
--- NOTE | 2020-03-23 20:00 | NUR ---
Pt was received lying in bed fully awake and oriented to his name only. Pt is awaiting transfer to [facility]. No acute distress noted at this time. IVF of D5 1/2NS is infusing well at 75ml/hr in YAW without any signs of infiltration. Fall and safety precautions are in place.
--- NOTE | 2020-03-23 20:25 | NUR ---
Pt was transferred to [facility] with all his belongings via Ambulance in stable condition. Prior to transfer, IV Angiocath in YAW was removed intact and pressure dressing applied to the site. Wrist ID band was removed and placed in the shredder. Plain ID band with pt's name and was applied to pt's wrist.
== END 2020-03-23 20:25 | DRG 871 ==
LOC: SED 13:29 → STU 19:36 → SMU 03-19 14:41
PROVIDERS: ADMIT Family Medicine; ATTEND Family Medicine
DX: A41.9 Sepsis, unspecified organism (principal); G93.41 Metabolic encephalopathy; E46 Unspecified protein-calorie malnutrition; F02.81 Dementia in other diseases classified elsewhere, unspecified severity, with behavioral disturbance; Z68.1 Body mass index [BMI] 19.9 or less, adult; N39.0 Urinary tract infection, site not specified; E03.9 Hypothyroidism, unspecified; E78.5 Hyperlipidemia, unspecified; G20 Parkinson's disease; G30.9 Alzheimer's disease, unspecified; Z20.828 Contact with and (suspected) exposure to other viral communicable diseases; M81.0 Age-related osteoporosis without current pathological fracture; R13.10 Dysphagia, unspecified; E86.0 Dehydration
CPT/HCPCS: 36415; 71045; 71275; 80048; 80053; 81003; 82550-TC; 82728; 83605; 83615-TC; 83880; 84443-TC; 84484; 85025; 85379; 85384-TC; 85610-TC; 85730-TC; 86140; 87040-TC; 87086; 92610-GN; 93005; 93970; 96360; 97110-GP; 97530-GP; 99285; A6209; G0378; J0696; J7030; J7060; Q9967; U0003

== ENCOUNTER 2020-04-04 12:35 | Inpatient (IN) | payer OTHER, BC, SELFPAY ==
[~2020-04-04] VITALS: Ht 167.6 cm; Wt 54.4 kg
[2020-04-04 12:35] VITALS: BP_SYST 131
[~2020-04-04 12:35] MED LIST: CARB1TAB21 PO; CLOP75TA32 PO; LIP20 PO; RISP0.5T5 PO; SYN50 PO
[2020-04-04] MEDS ORDERED: NACL 0.9% 1,000 ML IV ONE ×2 (13:00→15:30)
[2020-04-04 13:12] LABS: BASOPHILS # (AUTO) 0.1 K/uL (0.0-0.2); BASOPHILS % (AUTO) 0.3 % (0.0-2.0); EOSINOPHILS % (AUTO) 0.1 % (0.0-4.0); HEMATOCRIT 50.2 % (36-54); HEMOGLOBIN 17.1 g/dL (14.0-18.0); LYMPHOCYTES # (AUTO) 0.6 K/uL (1.0-5.5); LYMPHOCYTES % (AUTO) 2.9 % (20.5-51.5); MEAN CORPUSCULAR HEMOGLOBIN 34 pg (27-31); MEAN CORPUSCULAR HGB CONC 34 % (32-36); MEAN CORPUSCULAR VOLUME 100 fL (79.0-98.0); MONOCYTES # (AUTO) 0.8 K/uL (0.0-1.0); MONOCYTES % (AUTO) 4.2 % (1.7-9.3); NEUTROPHILS # (AUTO) 17.9 K/uL (1.8-7.7); NEUTROPHILS % (AUTO) 92.5 % (40.0-70.0); PLATELET COUNT (AUTO) 287 K/uL (130-430); RED BLOOD CELL COUNT(AUTO) 5.03 MIL/uL (4.2-6.2); RED CELL DISTRIBUTION WIDTH 14.4 % (9.0-15.0); WHITE BLOOD COUNT (AUTO) 19.3 K/uL (4.8-10.8)
[2020-04-04 13:39] LABS: BILIRUBIN,URINE 1+ (NEGATIVE); BLOOD, URINE NEGATIVE (NEGATIVE); CLARITY/URINE CLEAR (CLEAR); COLOR,URINE YELLOW (YELLOW); GLUCOSE,URINE NEGATIVE (NEGATIVE); KETONES,URINE NEGATIVE (NEGATIVE); LEUKOCYTE ESTERASE ,URINE NEGATIVE (NEGATIVE); NITRITE, URINE NEGATIVE (NEGATIVE); PROTEIN URINE TRACE (NEGATIVE); UROBILINOGEN,URINE 0.2 (0.2-1.0)
[2020-04-04 13:43] LABS: ANION GAP 17 (5-15); CALCIUM 8.7 mg/dL (8.4-11.0); CHLORIDE 114 mmol/L (98-107); CREATININE 3.63 mg/dL (0.55-1.30); GLUCOSE 222 mg/dL (70-99); POTASSIUM 4.9 mmol/L (3.5-5.1); SODIUM SERUM 152 mmol/L (136-145); UREA NITROGEN, BLOOD 97 mg/dL (8-21)
[2020-04-04 13:45] LABS: INR 1.1 (0.80-1.20); PROTHROMBIN TIME 11.5 SECS (9.5-12.5)
[2020-04-04 13:58] LABS: ALANINE AMINOTRANSFERASE 6 U/L (12-78); ASPARTATE AMINOTRANSFERASE 24 U/L (10-37); LIPASE 55 U/L (73-393); THYROID STIMULATING HORMONE 3.54 uIu/mL (0.36-3.74); TOTAL BILIRUBIN 0.4 mg/dL (0.0-1.0)
[2020-04-04] MEDS ORDERED: PIPERACILLIN/TAZO 3.375 GM in NS 50 ML IV ONE (15:15)
[2020-04-04] MEDS ORDERED: KCL 20 mEq in NS 1000 mL 1,000 ML IV SCH (15:30)
[2020-04-04] MEDS ORDERED: PIPERACILLIN/TAZOBACTAM 3.375 GM/VIAL (ZOSYN) IV ONE (15:54)
[2020-04-04] MEDS ORDERED: NACL 0.9% 1,000 ML IV SCH (16:30)
[2020-04-04] MEDS ORDERED: ACETAMINOPHEN 650 MG SUPP.RECT RC ONE (19:45)
[2020-04-04 22:00] VITALS: BP_SYST 128
[2020-04-04 22:10] VITALS: BP_SYST 128
[2020-04-04] MEDS: NS IV SCH (22:58)
[2020-04-04] MEDS: PIPERACILLIN IV SCH (22:58)
[2020-04-04] MEDS: 0.45% NACL 1,000 ML IV SCH (22:58)
[2020-04-04] MEDS: TAZOBACTAM IV SCH (22:58)
[2020-04-04 23:00] VITALS: BP_SYST 167
[2020-04-05] VITALS (23 sets, daily range): BP systolic 105–163
[2020-04-05] MEDS: 0.45% NACL 1,000 ML IV SCH ×3 (04:00→22:54)
[2020-04-05] MEDS: PIPERACILLIN IV SCH ×2 (05:52→12:44)
[2020-04-05] MEDS: TAZOBACTAM IV SCH ×2 (05:52→12:44)
[2020-04-05] MEDS: NS IV SCH ×2 (05:52→12:44)
[2020-04-05 06:22] LABS: BASOPHILS % (AUTO) 0.1 % (0.0-2.0); HEMATOCRIT 46.6 % (36-54); HEMOGLOBIN 15.4 g/dL (14.0-18.0); LYMPHOCYTES # (AUTO) 0.5 K/uL (1.0-5.5); LYMPHOCYTES % (AUTO) 2.7 % (20.5-51.5); MEAN CORPUSCULAR HEMOGLOBIN 32 pg (27-31); MEAN CORPUSCULAR HGB CONC 33 % (32-36); MEAN CORPUSCULAR VOLUME 98 fL (79.0-98.0); MONOCYTES # (AUTO) 0.5 K/uL (0.0-1.0); MONOCYTES % (AUTO) 2.5 % (1.7-9.3); NEUTROPHILS % (AUTO) 94.7 % (40.0-70.0); RED BLOOD CELL COUNT(AUTO) 4.77 MIL/uL (4.2-6.2); RED CELL DISTRIBUTION WIDTH 14.2 % (9.0-15.0)
[2020-04-05 06:27] LABS: ANION GAP 18 (5-15); CALCIUM 8.2 mg/dL (8.4-11.0); CHLORIDE 119 mmol/L (98-107); CREATININE 3.18 mg/dL (0.55-1.30); GLUCOSE 155 mg/dL (70-99); PLATELET COUNT (AUTO) 195 K/uL (130-430); POTASSIUM 4.2 mmol/L (3.5-5.1)
[2020-04-05] MEDS ORDERED: ACETAMINOPHEN 650 MG SUPP.RECT RC PRN (07:00)
[2020-04-05 08:13] LABS: SODIUM SERUM 152 mmol/L (136-145); UREA NITROGEN, BLOOD 100 mg/dL (8-21)
[2020-04-05] MEDS: PANTOPRAZOLE SODIUM 40 MG/VIAL (PROTONIX) IVP SCH (09:00)
[2020-04-05] MEDS: ENOXAPARIN SODIUM 30 MG/0.3 ML SYRINGE SUBCUT SCH (09:01)
[2020-04-05] MEDS: AZITHROMYCIN 500 MG in NS 250 ML IV SCH (10:00)
[2020-04-05] MEDS ORDERED: DILTIAZEM HCL 25 MG/5 ML VIAL IVP ONE (18:30)
[2020-04-05] MEDS ORDERED: NACL 0.9% 1,000 ML IV ONE (18:30)
[2020-04-05] MEDS: PIPERACILLIN/TAZOBACTAM 2.25 GM in NS 50 ML IV SCH (21:15)
[2020-04-06] VITALS (24 sets, daily range): BP systolic 106–150
[2020-04-06] MEDS: 0.45% NACL 1,000 ML IV SCH (04:00)
[2020-04-06] MEDS: PIPERACILLIN/TAZOBACTAM 2.25 GM in NS 50 ML IV SCH ×3 (05:16→22:00)
[2020-04-06 05:58] LABS: BASOPHILS % (AUTO) 0.3 % (0.0-2.0); HEMATOCRIT 44.4 % (36-54); HEMOGLOBIN 14.2 g/dL (14.0-18.0); LYMPHOCYTES # (AUTO) 0.4 K/uL (1.0-5.5); LYMPHOCYTES % (AUTO) 2.5 % (20.5-51.5); MEAN CORPUSCULAR HEMOGLOBIN 32 pg (27-31); MEAN CORPUSCULAR HGB CONC 32 % (32-36); MEAN CORPUSCULAR VOLUME 99 fL (79.0-98.0); MONOCYTES # (AUTO) 0.4 K/uL (0.0-1.0); MONOCYTES % (AUTO) 2.1 % (1.7-9.3); NEUTROPHILS # (AUTO) 15.9 K/uL (1.8-7.7); NEUTROPHILS % (AUTO) 95.1 % (40.0-70.0); PLATELET COUNT (AUTO) 165 K/uL (130-430); RED BLOOD CELL COUNT(AUTO) 4.48 MIL/uL (4.2-6.2); RED CELL DISTRIBUTION WIDTH 14.6 % (9.0-15.0); WHITE BLOOD COUNT (AUTO) 16.7 K/uL (4.8-10.8)
[2020-04-06 06:22] LABS: ALANINE AMINOTRANSFERASE 17 U/L (12-78); ALBUMIN 2.1 g/dL (3.4-4.8); ANION GAP 14 (5-15); CALCIUM 8.3 mg/dL (8.4-11.0); CREATININE 2.77 mg/dL (0.55-1.30); GLUCOSE 139 mg/dL (70-99); POTASSIUM 4.3 mmol/L (3.5-5.1); SODIUM SERUM 156 mmol/L (136-145); TOTAL BILIRUBIN 0.5 mg/dL (0.0-1.0); UREA NITROGEN, BLOOD 93 mg/dL (8-21)
[2020-04-06] MEDS ORDERED: NACL 0.9% 2,000 ML IV ONE (07:30)
[2020-04-06 07:40] LABS: CHLORIDE 122 mmol/L (98-107)
[2020-04-06 07:41] LABS: ASPARTATE AMINOTRANSFERASE 49 U/L (10-37)
[2020-04-06] MEDS: PANTOPRAZOLE SODIUM 40 MG/VIAL (PROTONIX) IVP SCH (08:46)
[2020-04-06] MEDS: ENOXAPARIN SODIUM 30 MG/0.3 ML SYRINGE SUBCUT SCH (08:47)
[2020-04-06] MEDS: AZITHROMYCIN 500 MG in NS 250 ML IV SCH (10:10)
[2020-04-06] MEDS: D5W 1,000 ML IV SCH ×2 (10:30→18:30)
[2020-04-06] MEDS: LEVOTHYROXINE SODIUM 0.05 MG TABLET PO SCH (22:15)
[2020-04-06] MEDS ORDERED: CARBIDOPA/LEVODOPA 25/100 MG TABLET PO SCH (22:15)
[2020-04-06] MEDS ORDERED: CARBIDOPA/LEVODOPA 25/100 MG TABLET PO ONE (22:30)
[2020-04-06] MEDS: CLOPIDOGREL BISULFATE 75 MG TABLET PO SCH (23:35)
[2020-04-07] VITALS (24 sets, daily range): BP systolic 101–152
[2020-04-07] MEDS: D5W 1,000 ML IV SCH ×3 (03:51→14:27)
[2020-04-07] MEDS: LEVOTHYROXINE SODIUM 0.05 MG TABLET PO SCH (06:14)
[2020-04-07] MEDS: PIPERACILLIN/TAZOBACTAM 2.25 GM in NS 50 ML IV SCH ×3 (06:14→22:08)
[2020-04-07 06:28] LABS: ALANINE AMINOTRANSFERASE 21 U/L (12-78); ALBUMIN 1.8 g/dL (3.4-4.8); ANION GAP 11 (5-15); ASPARTATE AMINOTRANSFERASE 56 U/L (10-37); CALCIUM 7.7 mg/dL (8.4-11.0); CHLORIDE 119 mmol/L (98-107); CREATININE 2.11 mg/dL (0.55-1.30); GLUCOSE 233 mg/dL (70-99); LIPASE 217 U/L (73-393); POTASSIUM 3.1 mmol/L (3.5-5.1); SODIUM SERUM 149 mmol/L (136-145); THYROID STIMULATING HORMONE 1.89 uIu/mL (0.36-3.74); TOTAL BILIRUBIN 0.5 mg/dL (0.0-1.0); UREA NITROGEN, BLOOD 68 mg/dL (8-21)
[2020-04-07 07:25] LABS: HDL CHOLESTEROL 16 mg/dL (>45); LDL CHOLESTEROL 15 mg/dL (<100); TRIGLYCERIDES 76 mg/dL (30-150)
[2020-04-07 07:46] LABS: BASOPHILS % (AUTO) 0.2 % (0.0-2.0); EOSINOPHILS % (AUTO) 0.1 % (0.0-4.0); HEMATOCRIT 39.5 % (36-54); LYMPHOCYTES # (AUTO) 0.4 K/uL (1.0-5.5); LYMPHOCYTES % (AUTO) 3.5 % (20.5-51.5); MEAN CORPUSCULAR HEMOGLOBIN 32 pg (27-31); MEAN CORPUSCULAR HGB CONC 33 % (32-36); MEAN CORPUSCULAR VOLUME 98 fL (79.0-98.0); MONOCYTES # (AUTO) 0.3 K/uL (0.0-1.0); MONOCYTES % (AUTO) 2.3 % (1.7-9.3); NEUTROPHILS # (AUTO) 10.5 K/uL (1.8-7.7); NEUTROPHILS % (AUTO) 93.9 % (40.0-70.0); PLATELET COUNT (AUTO) 137 K/uL (130-430); RED BLOOD CELL COUNT(AUTO) 4.04 MIL/uL (4.2-6.2); RED CELL DISTRIBUTION WIDTH 14.6 % (9.0-15.0); WHITE BLOOD COUNT (AUTO) 11.1 K/uL (4.8-10.8)
[2020-04-07] MEDS: PANTOPRAZOLE SODIUM 40 MG/VIAL (PROTONIX) IVP SCH (09:15)
[2020-04-07] MEDS: AZITHROMYCIN 500 MG in NS 250 ML IV SCH (09:16)
[2020-04-07] MEDS: CLOPIDOGREL BISULFATE 75 MG TABLET PO SCH (09:16)
[2020-04-07 09:19] LABS: CHOLESTEROL < 50 mg/dL (<200)
[2020-04-07] MEDS: ENOXAPARIN SODIUM 30 MG/0.3 ML SYRINGE SUBCUT SCH (09:20)
[2020-04-07] MEDS ORDERED: CARBIDOPA/LEVODOPA 25/100 MG TABLET PO ONE (10:00)
[2020-04-07] MEDS: CARBIDOPA/LEVODOPA 25/100 MG TABLET PO SCH ×2 (14:27→22:08)
[2020-04-07] MEDS ORDERED: FUROSEMIDE 40 MG/4 ML VIAL IVP ONE (18:15)
[2020-04-08] VITALS (25 sets, daily range): BP systolic 73–121
[2020-04-08] MEDS: PIPERACILLIN/TAZOBACTAM 2.25 GM in NS 50 ML IV SCH ×3 (05:19→22:14)
[2020-04-08 05:31] LABS: BASOPHILS % (AUTO) 0.1 % (0.0-2.0); HEMATOCRIT 41.3 % (36-54); HEMOGLOBIN 13.9 g/dL (14.0-18.0); LYMPHOCYTES # (AUTO) 0.3 K/uL (1.0-5.5); LYMPHOCYTES % (AUTO) 2.6 % (20.5-51.5); MEAN CORPUSCULAR HEMOGLOBIN 33 pg (27-31); MEAN CORPUSCULAR HGB CONC 34 % (32-36); MEAN CORPUSCULAR VOLUME 97 fL (79.0-98.0); MONOCYTES # (AUTO) 0.2 K/uL (0.0-1.0); MONOCYTES % (AUTO) 1.5 % (1.7-9.3); NEUTROPHILS # (AUTO) 12.6 K/uL (1.8-7.7); NEUTROPHILS % (AUTO) 95.8 % (40.0-70.0); PLATELET COUNT (AUTO) 135 K/uL (130-430); RED BLOOD CELL COUNT(AUTO) 4.25 MIL/uL (4.2-6.2); RED CELL DISTRIBUTION WIDTH 14.4 % (9.0-15.0); WHITE BLOOD COUNT (AUTO) 13.2 K/uL (4.8-10.8)
[2020-04-08 05:47] LABS: ALANINE AMINOTRANSFERASE 15 U/L (12-78); ALBUMIN 1.6 g/dL (3.4-4.8); ANION GAP 12 (5-15); ASPARTATE AMINOTRANSFERASE 70 U/L (10-37); CALCIUM 7.9 mg/dL (8.4-11.0); CREATININE 2.35 mg/dL (0.55-1.30); GLUCOSE 105 mg/dL (70-99); POTASSIUM 3.6 mmol/L (3.5-5.1); SODIUM SERUM 155 mmol/L (136-145); TOTAL BILIRUBIN 0.6 mg/dL (0.0-1.0); UREA NITROGEN, BLOOD 57 mg/dL (8-21)
[2020-04-08 05:51] LABS: CHLORIDE 120 mmol/L (98-107)
[2020-04-08] MEDS: LEVOTHYROXINE SODIUM 0.05 MG TABLET PO SCH (06:26)
[2020-04-08] MEDS: PANTOPRAZOLE SODIUM 40 MG/VIAL (PROTONIX) IVP SCH (08:01)
[2020-04-08] MEDS: CLOPIDOGREL BISULFATE 75 MG TABLET PO SCH (08:02)
[2020-04-08] MEDS: CARBIDOPA/LEVODOPA 25/100 MG TABLET PO SCH ×3 (08:02→20:31)
[2020-04-08] MEDS: ENOXAPARIN SODIUM 30 MG/0.3 ML SYRINGE SUBCUT SCH (08:03)
[2020-04-08] MEDS ORDERED: D5W 500 ML IV ONE (08:15)
[2020-04-08] MEDS ORDERED: 0.45% NACL 1,000 ML IV ONE (08:15)
[2020-04-08] MEDS ORDERED: FLUCONAZOLE 200 mg/ NS 100 ML IV ONE (09:30)
[2020-04-08] MEDS: AZITHROMYCIN 500 MG in NS 250 ML IV SCH (09:42)
[2020-04-08] MEDS ORDERED: POTASSIUM CHLORIDE 40 MEQ in NS 250 ML IV ONE (09:45)
[2020-04-08] MEDS: METOPROLOL TARTRATE 5 MG/5 ML VIAL IVP PRN ×2 (14:30→20:31)
[2020-04-08] MEDS ORDERED: LORazepam 2 MG/ML VIAL IM ONE (16:15)
[2020-04-08] MEDS ORDERED: MORPHINE 2 MG/ML INJ. SYRINGE IVP PRN (19:15)
[2020-04-08] MEDS ORDERED: NALOXONE HCL 0.4 MG/ML AMP (NARCAN) IVP PRN (19:15)
[2020-04-08] MEDS ORDERED: NACL 0.9% 1,000 ML IV ONE (20:15)
[2020-04-08] MEDS: NACL 0.9% 1,000 ML IV SCH (20:34)
[2020-04-08] MEDS: MORPHINE 2 MG/ML INJ. SYRINGE IVP PRN (21:18)
[2020-04-09] VITALS (25 sets, daily range): BP systolic 96–142
[2020-04-09] MEDS: MORPHINE 2 MG/ML INJ. SYRINGE IVP PRN ×3 (05:06→23:31)
[2020-04-09] MEDS: PIPERACILLIN/TAZOBACTAM 2.25 GM in NS 50 ML IV SCH ×3 (05:08→21:41)
[2020-04-09] MEDS: LEVOTHYROXINE SODIUM 0.05 MG TABLET PO SCH (06:11)
[2020-04-09] MEDS: NACL 0.9% 1,000 ML IV SCH (06:11)
[2020-04-09 06:43] LABS: BASOPHILS % (AUTO) 0.2 % (0.0-2.0); EOSINOPHILS % (AUTO) 0.1 % (0.0-4.0); HEMATOCRIT 36.9 % (36-54); HEMOGLOBIN 12.5 g/dL (14.0-18.0); LYMPHOCYTES # (AUTO) 0.5 K/uL (1.0-5.5); LYMPHOCYTES % (AUTO) 3.9 % (20.5-51.5); MEAN CORPUSCULAR HEMOGLOBIN 33 pg (27-31); MEAN CORPUSCULAR HGB CONC 34 % (32-36); MEAN CORPUSCULAR VOLUME 96 fL (79.0-98.0); MONOCYTES # (AUTO) 0.2 K/uL (0.0-1.0); MONOCYTES % (AUTO) 1.3 % (1.7-9.3); NEUTROPHILS # (AUTO) 12.5 K/uL (1.8-7.7); NEUTROPHILS % (AUTO) 94.5 % (40.0-70.0); PLATELET COUNT (AUTO) 121 K/uL (130-430); RED BLOOD CELL COUNT(AUTO) 3.84 MIL/uL (4.2-6.2); RED CELL DISTRIBUTION WIDTH 14.4 % (9.0-15.0); WHITE BLOOD COUNT (AUTO) 13.2 K/uL (4.8-10.8)
[2020-04-09 07:16] LABS: ALANINE AMINOTRANSFERASE 8 U/L (12-78); ALBUMIN 1.3 g/dL (3.4-4.8); ANION GAP 12 (5-15); ASPARTATE AMINOTRANSFERASE 58 U/L (10-37); CALCIUM 7.5 mg/dL (8.4-11.0); CREATININE 2.03 mg/dL (0.55-1.30); GLUCOSE 119 mg/dL (70-99); SODIUM SERUM 154 mmol/L (136-145); TOTAL BILIRUBIN 0.4 mg/dL (0.0-1.0); UREA NITROGEN, BLOOD 59 mg/dL (8-21)
[2020-04-09 07:59] LABS: CHLORIDE 123 mmol/L (98-107); POTASSIUM 2.9 mmol/L (3.5-5.1)
[2020-04-09] MEDS ORDERED: POTASSIUM CHLORIDE 20 MEQ/PKT PACKET PO ONE (09:00)
[2020-04-09] MEDS ORDERED: 0.45% NACL 1,000 ML IV SCH (09:00)
[2020-04-09] MEDS: CLOPIDOGREL BISULFATE 75 MG TABLET PO SCH (09:11)
[2020-04-09] MEDS: PANTOPRAZOLE SODIUM 40 MG/VIAL (PROTONIX) IVP SCH (09:11)
[2020-04-09] MEDS: CARBIDOPA/LEVODOPA 25/100 MG TABLET PO SCH ×3 (09:11→19:58)
[2020-04-09] MEDS: ENOXAPARIN SODIUM 30 MG/0.3 ML SYRINGE SUBCUT SCH (09:12)
[2020-04-09] MEDS: AZITHROMYCIN 500 MG in NS 250 ML IV SCH (09:18)
[2020-04-09] MEDS: D5W 1,000 ML IV SCH ×2 (11:22→21:41)
[2020-04-10] VITALS (7 sets, daily range): BP systolic 85–122
[2020-04-10] MEDS: MORPHINE 2 MG/ML INJ. SYRINGE IVP PRN ×3 (02:26→06:30)
[2020-04-10] MEDS: METOPROLOL TARTRATE 5 MG/5 ML VIAL IVP PRN (04:30)
[2020-04-10] MEDS: PIPERACILLIN/TAZOBACTAM 2.25 GM in NS 50 ML IV SCH (05:12)
[2020-04-10 06:23] LABS: ALANINE AMINOTRANSFERASE 10 U/L (12-78); ALBUMIN 1.3 g/dL (3.4-4.8); ANION GAP 11 (5-15); ASPARTATE AMINOTRANSFERASE 69 U/L (10-37); CREATININE 2.01 mg/dL (0.55-1.30); GLUCOSE 174 mg/dL (70-99); POTASSIUM 3.3 mmol/L (3.5-5.1); SODIUM SERUM 155 mmol/L (136-145); TOTAL BILIRUBIN 0.5 mg/dL (0.0-1.0); UREA NITROGEN, BLOOD 53 mg/dL (8-21)
[2020-04-10] MEDS: LEVOTHYROXINE SODIUM 0.05 MG TABLET PO SCH (06:25)
[2020-04-10 07:21] LABS: CHLORIDE 123 mmol/L (98-107)
[2020-04-10 11:38] LABS: BASOPHILS % (AUTO) 0.2 % (0.0-2.0); EOSINOPHILS % (AUTO) 0.1 % (0.0-4.0); HEMATOCRIT 39.5 % (36-54); LYMPHOCYTES # (AUTO) 0.3 K/uL (1.0-5.5); LYMPHOCYTES % (AUTO) 2.8 % (20.5-51.5); MEAN CORPUSCULAR HEMOGLOBIN 32 pg (27-31); MEAN CORPUSCULAR HGB CONC 33 % (32-36); MEAN CORPUSCULAR VOLUME 98 fL (79.0-98.0); MONOCYTES # (AUTO) 0.1 K/uL (0.0-1.0); MONOCYTES % (AUTO) 0.7 % (1.7-9.3); NEUTROPHILS # (AUTO) 11.3 K/uL (1.8-7.7); NEUTROPHILS % (AUTO) 96.2 % (40.0-70.0); PLATELET COUNT (AUTO) 114 K/uL (130-430); RED BLOOD CELL COUNT(AUTO) 4.03 MIL/uL (4.2-6.2); RED CELL DISTRIBUTION WIDTH 15.1 % (9.0-15.0); WHITE BLOOD COUNT (AUTO) 11.8 K/uL (4.8-10.8)
== END 2020-04-10 07:01 | disposition expired | DRG 871 ==
LOC: SED 12:35 → SIC 15:28
PROVIDERS: ADMIT Family Medicine; ATTEND Family Medicine
PROC: 5A09457 Assistance with Respiratory Ventilation, 24-96 Consecutive Hours, Continuous Positive Airway Pressure (ICD-10-PCS; principal; 2020-04-07)
DX: A41.9 Sepsis, unspecified organism (principal); R65.21 Severe sepsis with septic shock; J96.21 Acute and chronic respiratory failure with hypoxia; N17.0 Acute kidney failure with tubular necrosis; G93.41 Metabolic encephalopathy; J15.9 Unspecified bacterial pneumonia; E87.0 Hyperosmolality and hypernatremia; E87.2 Acidosis; I47.1 Supraventricular tachycardia; N39.0 Urinary tract infection, site not specified; Z68.1 Body mass index [BMI] 19.9 or less, adult; Z66 Do not resuscitate; E03.9 Hypothyroidism, unspecified; E78.5 Hyperlipidemia, unspecified; E86.0 Dehydration; F01.50 Vascular dementia, unspecified severity, without behavioral disturbance, psychotic disturbance, mood disturbance, and anxiety; F02.80 Dementia in other diseases classified elsewhere, unspecified severity, without behavioral disturbance, psychotic disturbance, mood disturbance, and anxiety; G20 Parkinson's disease; G30.9 Alzheimer's disease, unspecified; D63.8 Anemia in other chronic diseases classified elsewhere; R62.7 Adult failure to thrive; I12.9 Hypertensive chronic kidney disease with stage 1 through stage 4 chronic kidney disease, or unspecified chronic kidney disease; I25.10 Atherosclerotic heart disease of native coronary artery without angina pectoris; I48.0 Paroxysmal atrial fibrillation; N18.9 Chronic kidney disease, unspecified; R13.10 Dysphagia, unspecified; R26.2 Difficulty in walking, not elsewhere classified; Y95 Nosocomial condition; Z20.828 Contact with and (suspected) exposure to other viral communicable diseases; Z96.619 Presence of unspecified artificial shoulder joint; Z87.891 Personal history of nicotine dependence; Z74.01 Bed confinement status; Z95.5 Presence of coronary angioplasty implant and graft
CPT/HCPCS: 36415; 36600; 70450-TC; 71045; 76376; 76770; 80048; 80053; 80061; 81003; 82140-TC; 82803-TC; 83605; 83690-TC; 83735-TC; 83880; 84439; 84443-TC; 84484; 85025; 85610-TC; 85651-TC; 85730-TC; 87040-TC; 87081; 87086; 87449; 93005; 94660; 96361; 96365; 99291; C9113; J0456; J1450; J1650; J1940; J2060; J2270; J2543; J3480; J3490; J7030; J7050; J7060; U0003